=== PATIENT | male | born 1980 | race Caucasian/White ===

== ENCOUNTER 2020-12-03 15:11 | Emergency (ER) | payer OTHER, SELFPAY ==
--- NOTE | ~2020-12-03 | XR_ITS ---
EXAMINATION: XR wrist RT min 3V DATE: 12/03/2020 15:27 INDICATION: Right wrist pain post fall TECHNIQUE: Posteroanterior, ulnar deviation, oblique, and lateral views of the right wrist were obtai devante. COMPARISON: none FINDINGS: Bone alignment is normal. No fracture. Joint spaces are normal. Soft tissues are unremarkable. IMPRESSION: 1. No acute osseous abnormality. Reviewed, dictated and finalized at location A.
--- NOTE | 2020-12-03 15:17 | ED.GENADULT ---
HPI - General Adult General Chief complaint: Extremity Injury, Upper Stated complaint: INJURED R WRIST Time Seen by Provider: 12/03/20 15:17 Source: patient Mode of arrival: ambulatory Limitations: no limitations History of Present Illness HPI narrative: 40-year-old male patient presents to the [facility] with complaints of right wrist pain. Patient states he was at work yesterday and states he was trying to fix the clients bumper and states he was using a metal pole pulling on the bumper and states that it slipped and he fell back using his right hand to brace his fall. Patient states since then he has been having some right wrist pain. Patient states he has taken some Motrin for the pain. Denies any numbness or tingling to the fingers at this time. Related Data Home Medications Medication Instructions Recorded Confirmed No Home Medications 12/03/20 12/03/20 Allergies Allergy/AdvReac Type Severity Reaction Status Date / Time No Known Allergies Allergy Unverified 12/03/20 09:48 Review of Systems Review of Systems: Narrative: CONSTITUTIONAL: Denies fever, chills, or sweats. EYES: Denies visual changes, redness, or discharge. ENT: Denies rhinorrhea, congestion, sore throat, or otalgia. CARDIOVASCULAR: Denies chest pain, palpitations, or edema. RESPIRATORY: Denies cough or dyspnea. GASTROINTESTINAL: Denies abdominal pain, nausea, vomiting, or diarrhea. GENITOURINARY: Denies dysuria or hematuria. SKIN: Denies rash or itching. MUSCULOSKELETAL: Denies back pain, joint pain, or myalgia. Right wrist pain NEUROLOGIC: Denies headache, numbness, or weakness. PSYCHIATRIC: Denies anxiety or depression. [facility] Past Medical History Medical History Idiopathic gout Left hip pain Lower back pain Wrist swelling Family History Family History Father Osteoarthritis Mother Brain tumor Family history of colon cancer Grandparent Carcinoma of colon Social History Social History Smoking status: Current every day smoker Alcohol intake: current Comments At the time of my signature I agree with nursing past medical history, surgical, social, and family history. There is no relevant family history pertinent to the presenting complaint. Exam Narrative: Exam Narrative: GENERAL: Well-appearing, well-nourished, and in no acute distress. HEAD: Normocephalic, atraumatic. EYES: PERRLA and EOMI. ENT: Nares clear, no rhinorrhea or epistaxis. Mucous membranes moist. NECK: Supple. No lymphadenopathy CHEST: Clear to auscultation. No respiratory distress. HEART: Regular rate and rhythm. No murmur heard. Normal peripheral pulses. ABDOMEN: Soft, nontender, nondistended, normal active bowel sounds. EXTREMITIES: The R wrist is without obvious asymmetry or deformity when compared to the L wrist. No surface trauma, open wounds, swelling, or obvious deformity. No overlying erythema or warmth. No bony crepitus or focal area of TTP. No scaphoid fullness or tenderness to direct palpation or axial load. Pain with flex/extension, no pain with ulnar/radial deviation. Motor/sensory function of ulnar, radial, median nerves intact. Ulnar and radial pulses intact. Negaitve Phalen's/Tinel's sign. Negative Nina test. SKIN: Warm, dry, no rash. NEURO: No focal deficits. Alert and oriented x3. Course Reevaluation(s) Reevaluation #1: Reevaluated patient after his x-ray resulted. Notified patient that his x-ray is negative for any acute fractures. Discussed with him that his pain is most likely due to a sprain or overextension of the ligaments in his wrist. Discussed with patient that we will go ahead and wrap him with an Torres wrap today and he may take Tylenol ibuprofen as needed for the pain and encourage ice and rest. Discussed with patient that if he would need any type of res
[2020-12-03 15:18] VITALS: BP 152/101; PULSE 108; RESP 16; TEMP 37; O2SAT 100
[2020-12-03 15:21] VITALS: BP 152/101; PULSE 108; RESP 16; O2SAT 100
== END 2020-12-03 15:52 | disposition home or self-care (01) ==
PROVIDERS: Emergency Provider Nurse Practitioner Family; PCP Internal Medicine
DX: S63.501A Unspecified sprain of right wrist, initial encounter (principal); W19.XXXA Unspecified fall, initial encounter; Y99.0 Civilian activity done for income or pay; M10.00 Idiopathic gout, unspecified site; F17.200 Nicotine dependence, unspecified, uncomplicated
CPT/HCPCS: 73110; 99213; G0463

== ENCOUNTER 2022-07-19 10:35 | Outpatient (CLI) | payer OTHER, BC, SELFPAY ==
[2022-07-19 18:56] LABS: Basophils Percent Auto 0.6 % (0.2-1.2); Eosinophils Absolute Auto 0.2 K/mm3 (0-0.3); Eosinophils Percent Auto 2.9 % (0-4.4); Hematocrit 47.5 % (42.0-52.0); Hemoglobin 15.2 g/dL (14.0-18.0); Immature Granulocyte Absolute 0.02 K/mm3 (0.00-0.031); Immature Granulocyte Percent A 0.4 % (0-0.5); Lymphocytes Absolute Auto 0.79 K/mm3 (0.9-3.2); Lymphocytes Percent Auto 15.2 % (18.3-44.2); Mean Corpuscular Hemoglobin 31.9 pg (26-34); Mean Corpuscular Volume 99.8 fl (80-100); Mean Platelet Volume 10.4 fl (7.4-10.4); Monocytes Absolute Auto 0.5 K/mm3 (0.1-0.6); Monocytes Percent Auto 8.7 % (2.6-8.5); Neutrophils Absolute Auto 3.8 K/mm3 (1.3-6.7); Neutrophils Percent Auto 72.2 % (45.5-73.1); Platelet Count Result 213 k/mm3 (150-375); Red Blood Count 4.76 M/mm3 (4.6-6.20); Red Cell Distribution Width 12.7 % (11.5-14.5); White Blood Count 5.2 K/mm3 (4.5-10.0)
[2022-07-19 19:48] LABS: Alanine Aminotransferase 25 U/L (6-50); Albumin Level 4.5 g/dL (3.5-5.1); Alkaline Phosphatase 84 U/L (38-126); Anion Gap 9 mmol/L (8-16); Aspartate Amino Transferase 27 U/L (17-59); Bilirubin,Total 0.5 mg/dL (0.2-1.3); Blood Urea Nitrogen 8 mg/dL (9-20); Calcium 9.1 mg/dL (8.4-10.2); Carbon Dioxide 27 mmol/L (22-30); Chloride 102 mmol/L (98-107); Cholesterol 224 mg/dL (0-200); Estimated Glomerular Filt Rate > 60; Glucose 89 mg/dL (65-110); HDL Direct 46 mg/dL; Potassium 4.5 mmol/L (3.4-5.0); Sodium 138 mmol/L (137-145); Triglycerides 203 mg/dL (<150)
[2022-07-19 21:03] LABS: LDL Cholesterol Direct 134 mg/dL
== END 2022-07-19 10:36 | disposition home or self-care (01) ==
LOC: ANHGOSHLAB 10:40
PROVIDERS: PCP Internal Medicine; Visit Provider Clinical Nurse Specialist
DX: Z13.29 Encounter for screening for other suspected endocrine disorder (principal); M10.00 Idiopathic gout, unspecified site; Z13.220 Encounter for screening for lipoid disorders
CPT/HCPCS: 36415; 80053; 80061; 84550; 85025

== ENCOUNTER 2023-11-15 15:34 | Outpatient (CLI) | payer BC, SELFPAY ==
[2023-11-15 18:55] LABS: Alanine Aminotransferase 22 U/L (6-50); Albumin Level 4.5 g/dL (3.5-5.1); Alkaline Phosphatase 75 U/L (38-126); Anion Gap 6 mmol/L (8-16); Aspartate Amino Transferase 39 U/L (17-59); Bilirubin,Total 0.7 mg/dL (0.2-1.3); Blood Urea Nitrogen 8 mg/dL (9-20); Calcium 9.4 mg/dL (8.4-10.2); Carbon Dioxide 31 mmol/L (22-30); Chloride 102 mmol/L (98-107); Cholesterol 223 mg/dL (0-200); Estimated Glomerular Filt Rate > 60; Glucose 102 mg/dL (65-110); HDL Direct 58 mg/dL; Potassium 3.9 mmol/L (3.4-5.0); Sodium 139 mmol/L (137-145); Triglycerides 176 mg/dL (<150)
[2023-11-15 19:07] LABS: LDL Cholesterol Direct 135 mg/dL
[2023-11-15 20:01] LABS: Folic Acid 12.5 ng/mL (2.76->20)
[2023-11-15 20:07] LABS: Basophils Percent Auto 0.4 % (0.2-1.2); Eosinophils Absolute Auto 0.2 K/mm3 (0-0.3); Eosinophils Percent Auto 4.3 % (0-4.4); Hematocrit 47.7 % (42.0-52.0); Hemoglobin 15.6 g/dL (14.0-18.0); Lymphocytes Percent Auto 20.4 % (18.3-44.2); Mean Corpuscular HGB Conc 32.7 g/dl (32-36); Mean Corpuscular Hemoglobin 31.6 pg (26-34); Mean Corpuscular Volume 96.6 fl (80-100); Mean Platelet Volume 10.6 fl (7.4-10.4); Monocytes Absolute Auto 0.5 K/mm3 (0.1-0.6); Monocytes Percent Auto 9.6 % (2.6-8.5); Neutrophils Absolute Auto 3.2 K/mm3 (1.3-6.7); Neutrophils Percent Auto 65.3 % (45.5-73.1); Platelet Count Result 206 k/mm3 (150-375); Red Blood Count 4.94 M/mm3 (4.6-6.20); Red Cell Distribution Width 12.5 % (11.5-14.5); White Blood Count 4.9 K/mm3 (4.5-10.0)
[2023-11-15 20:25] LABS: Creatinine Urine 38.4 mg/dL
[2023-11-15 21:33] LABS: MALB Creatinine Ratio < 15.6 mg/g (0-30); Microalbumin Urine Random < 6.0 mg/L (0-16.7)
== END 2023-11-15 15:35 | disposition home or self-care (01) ==
LOC: ANHGOSHLAB 15:36
PROVIDERS: PCP Internal Medicine; Visit Provider Clinical Nurse Specialist
DX: F41.9 Anxiety disorder, unspecified (principal); Z13.220 Encounter for screening for lipoid disorders; Z78.9 Other specified health status; Z13.228 Encounter for screening for other metabolic disorders
CPT/HCPCS: 36415; 80053; 80061; 82043; 82607; 82746; 84443; 85025

== ENCOUNTER 2024-04-02 01:51 | Day surgery (SDC) | payer BC, SELFPAY ==
[2024-03-16 15:39] VITALS: BMI 24.5
[2024-04-02 10:12] VITALS: BP 146/102; PULSE 92; RESP 20; TEMP 36.3; O2SAT 100; BMI 22.6
[2024-04-02] MEDS: LACTATED RINGERS 1,000 ML 150 ML IV CONT (10:18)
--- NOTE | 2024-04-02 10:24 | SUR.PREOP ---
Patient reports eating cheeseburger yesterday at 1030. Clear liquids yesterday and stool is yellow now. Dr. Tirado notified.
--- NOTE | 2024-04-02 10:46 | WPDANESEPPF ---
Anes - Initial Pre Proc Eval Procedure: Operation Date: 04/02/24 11:30 Proposed Procedures p Colonoscopy - Andrea Benavides MD Date/Time: 04/02/24 10:46 Surgeon: Andrea Benavides MD Pre Op Diagnosis: Family history malignant neoplasm of digestive or Patient Data Age: 44 Gender: M Height: 1.8 m Weight: 73.6 kg Last Vital Signs Temp 97.4 F L 04/02/24 10:12 Pulse 92 04/02/24 10:12 Resp 20 04/02/24 10:12 BP 146/102 H 04/02/24 10:12 Pulse Ox 100 04/02/24 10:12 O2 Del Method Room Air 04/02/24 10:12 Allergies Allergy/AdvReac Type Severity Reaction Status Date / Time RUBBER Allergy Mild Itching Uncoded 04/02/24 10:11 Home Medications Medication Instructions Recorded Confirmed Type allopurinol 100 mg tablet 100 mg PO DAILY #90 tabs 10/26/23 04/02/24 Rx Patient hx anesthesia problems: none Family hx anesthesia problems: none Results Review: All pre-operative results and documents have been reviewed as part of the pre-operative evaluation. [facility] Past Medical History Medical History (Updated 11/15/23 @ 15:36 by NEIL Day) Impacted cerumen of right ear Left hip pain Lower back pain Screening for endocrine disorder Screening for lipoid disorders Wrist swelling Family History Family History Father Osteoarthritis Mother Brain tumor Family history of colon cancer Grandparent Carcinoma of colon Social History Social History Social History: Caffeine-yes Smoking packs per day: 0.5 Smoking cigarettes per day: 10.0 Years smoked: 20 Smoking pack-years: 10.00 Smoking status: Former smoker Tobacco type: cigarettes Alcohol intake: current Drinks per week: 24 Lack of Food: Never True Current Housing: I Have Housing Concerned About Future Housing: No Difficulty Paying Gas/Electric Bills: No Difficulty Paying for Meds: No Currently Unemployed: No Education: High School Diploma/GED Difficulty w/ Childcare or Family Care: No Living arrangements: with family Spiritual care concerns: No Anes - Eval Final PreProcedure Day of Procedure 04/02/24 10:46 Patient weight: normal Heart: regular rate and rhythm Lungs: clear to auscultation Airway: Mallampati scale Neurological: alert and oriented Last oral intake: >/= 8 hours ASA classification: II Emergent: no Anesthetic plan: proceed Anesthesia type and monitoring: general GIVS and standard monitoring Results Review: All pre-operative results and documents have been reviewed as part of the pre-operative evaluation. Informed Consent: The patient's anesthetic plan and its attendant risks and benefits were discussed with the patient/family/POA. Questions were solicited and answers provided to the satisfaction of the patient/family/POA.
--- NOTE | 2024-04-02 11:26 | PM.HPGS ---
History of Present Illness History of Present Illness Consent: Risks, benefits, and alternatives have been discussed and questions answered. Patient agrees to proceed with procedure. Chief complaint: Family history malignant neoplasm of digestive or Narrative: Jus Hodge is a 44 year old male here for first colonoscopy, had paternal family members with colon cancer. Review of Systems Review of Systems: All systems reviewed & are unremarkable except as noted in HPI and below PMFSH Past Medical History Medical History (Updated 11/15/23 @ 15:36 by NEIL Day) Impacted cerumen of right ear Left hip pain Lower back pain Screening for endocrine disorder Screening for lipoid disorders Wrist swelling Family History Family History Father Osteoarthritis Mother Brain tumor Family history of colon cancer Grandparent Carcinoma of colon Social History Social History Social History: Caffeine-yes Smoking packs per day: 0.5 Smoking cigarettes per day: 10.0 Years smoked: 20 Smoking pack-years: 10.00 Smoking status: Former smoker Tobacco type: cigarettes Alcohol intake: current Drinks per week: 24 Lack of Food: Never True Current Housing: I Have Housing Concerned About Future Housing: No Difficulty Paying Gas/Electric Bills: No Difficulty Paying for Meds: No Currently Unemployed: No Education: High School Diploma/GED Difficulty w/ Childcare or Family Care: No Living arrangements: with family Spiritual care concerns: No Meds Home Medications and Allergies Home Medications Medication Instructions Recorded Confirmed Type allopurinol 100 mg tablet 100 mg PO DAILY #90 tabs 10/26/23 04/02/24 Rx Allergies Allergy/AdvReac Type Severity Reaction Status Date / Time RUBBER Allergy Mild Itching Uncoded 04/02/24 10:11 Vital Signs Vital Signs - 24 hr 04/02/24 10:12 Temperature 97.4 F L Pulse Rate 92 Respiratory Rate 20 Blood Pressure 146/102 H Pulse Oximetry 100 Oxygen Delivery Room Air Exam Const: General: comfortable and no acute distress HENMT: Face/Nose/Sinus: Normal nares present Eyes: General: appearance normal, both eyes and all related structures Neck: Neck: no JVD Resp: Auscultation: clear to auscultation bilaterally Cardio: Rate: regular rate Rhythm: regular rhythm GI: Inspection: non-distended GI Palp: Yes Soft to palpation Skin: General skin exam: normal color Neuro: General: gait normal Speech: normal speech Extrem: General: normal to inspection Psych: Mental Status: mental status grossly normal Assessment and Plan Assessment and plan (1) Family history of colon cancer: Code(s): Z80.0 - Family history of malignant neoplasm of digestive organs Status: Acute Assessment and Plan: colonoscopy
[2024-04-02 11:55] VITALS: BP 105/73; PULSE 80; RESP 16; O2SAT 99
[2024-04-02 12:05] VITALS: BP 108/75; PULSE 74; RESP 22; O2SAT 99
[2024-04-02 12:15] VITALS: BP 129/92; PULSE 71; RESP 21; O2SAT 100
== END 2024-04-02 12:30 | disposition home or self-care (01) ==
PROVIDERS: PCP Internal Medicine; Visit Provider Internal Medicine Gastroenterology
PROC: 0DJD8ZZ Inspection of Lower Intestinal Tract, Via Natural or Artificial Opening Endoscopic (ICD-10-PCS; CPT 45378; principal; 2024-04-02 11:30)
DX: Z12.11 Encounter for screening for malignant neoplasm of colon (principal); D12.3 Benign neoplasm of transverse colon; D12.4 Benign neoplasm of descending colon; K63.5 Polyp of colon; K64.8 Other hemorrhoids; Z87.891 Personal history of nicotine dependence; Z80.0 Family history of malignant neoplasm of digestive organs
CPT/HCPCS: 45385; 88305; J2704; J7120

== ENCOUNTER 2025-01-26 19:59 | Emergency (ER) | payer BC, SELFPAY ==
--- NOTE | ~2025-01-26 | XR_ITS ---
XR tibia fibula RT 2V Ordering provider: Diana Shay MD History: . RLE injury, tripped over dog . Comparison: None. FINDINGS: BONES: Oblique fracture in the distal one third of the right tibia. JOINT SPACES: Normal. SOFT TISSUES: Normal. Calcaneal spur. IMPRESSION: Oblique fracture in the distal one third of the right tibia. Reviewed, dictated and finalized at location A.
[2025-01-26 19:58] VITALS: BP 145/109; PULSE 80; RESP 18; TEMP 36.9; O2SAT 100
--- NOTE | 2025-01-26 20:01 | ED_ITS ---
HPI - Extremity Injury (Lower) General Chief Complaint: Extremity Injury, Lower Stated Complaint: r leg deformity, fall Time Seen by Provider: 01/26/25 19:59 History of Present Illness HPI Narrative: Patient tripped over the family dog and fell, hurting his right leg; unable to put weight on it and having severe pain. Related Data Allergies Allergy/AdvReac Type Severity Reaction Status Date / Time RUBBER Allergy Mild Itching Uncoded 01/26/25 20:06 Review of Systems 2 Review of Systems: All systems reviewed & are unremarkable except as noted in HPI and below PMFSH Past Medical History Medical History (Updated 01/26/25 @ 22:33 by Diana Shay MD) Impacted cerumen of right ear Screening for lipoid disorders Screening for endocrine disorder Wrist swelling Left hip pain Lower back pain Family History Family History Father Osteoarthritis Mother Brain tumor Family history of colon cancer Grandparent Carcinoma of colon Social History Social History Social History: Caffeine-yes Smoking packs per day: 0.5 Smoking cigarettes per day: 10.0 Years smoked: 20 Smoking pack-years: 10.00 Smoking status: Former smoker Tobacco type: cigarettes Alcohol intake: current Drinks per week: 24 Lack of Food: Never True Current Housing: I Have Housing Concerned About Future Housing: No Difficulty Paying Gas/Electric Bills: No Difficulty Paying for Meds: No Currently Unemployed: No Education: High School Diploma/GED Difficulty w/ Childcare or Family Care: No Living arrangements: with family Spiritual care concerns: No Exam 2 Narrative: EXAMINATION OF ORGAN SYSTEMS/BODY AREAS: Constitutional: Vital signs per nursing GENERAL: Appears slightly intoxicated HEAD: Normal with no signs of head trauma. EYES: EOMI, conjunctiva normal ENT: Hearing grossly intact LUNGS: Nonlabored breathing. HEART: [Regular rate and rhythm] ABD: [Soft], [nontender to palpation] EXT: Obvious deformity to right lower leg SKIN: [No rashes or lesions.] NEURO: [Alert and oriented x 3. No gross focal sensory or strength deficits.] PSYCH: Normal affect Course Vital Signs Vital signs: Vital Signs Temperature 98.4 F 01/26/25 19:58 Pulse Rate 80 01/26/25 19:58 Respiratory Rate 18 01/26/25 19:58 Blood Pressure 145/109 H 01/26/25 19:58 Pulse Oximetry 100 01/26/25 19:58 Oxygen Delivery Room Air 01/26/25 19:58 Temperature 98.4 F 01/26/25 19:58 Pulse Rate 80 01/26/25 19:58 Respiratory Rate 18 01/26/25 19:58 Blood Pressure 145/109 H 01/26/25 19:58 Pulse Oximetry 100 01/26/25 19:58 Oxygen Delivery Room Air 01/26/25 19:58 MDM - Extremity Injury (Lower) MDM Narrative Medical decision making narrative: 45M was trying to keep the dog away from his 5yo child and tripped, hurting his right leg. On exam he is NVI with good DP pulses, but obvious deformity to leg. XR on my independent interpretations show prox fib fx, distal tibia fx. D/w ortho here Dr Sahu who recommends long leg splint and transfer to trauma center. D/w [facility] ortho per patient request, Dr Feliciano reviewed scans, will see patient in ER on transfer. Discussed with Dr. Man [facility] at [facility] who accepts patient, requested C-collar placed which will be done. Lab Data 01/26/25 20:52 01/26/25 20:52 Labs: Lab Results 01/26/25 Range/Units 20:52 WBC 7.7 (4.5-10.0) K/mm3 RBC 4.63 (4.6-6.20) M/mm3 Hgb 14.8 (14.0-18.0) g/dL Hct 45.8 (42.0-52.0) % MCV 98.9 (80-100) fl MCH 32.0 (26-34) pg MCHC 32.3 (32-36) g/dl RDW 12.6 (11.5-14.5) % Plt Count 179 (150-375) k/mm3 MPV 9.7 (7.4-10.4) fl Immature Gran % (Auto) 0.3 (0-0.5) % Neut % (Auto) 75.0 H (45.5-73.1) % Lymph % (Auto) 15.2 L (18.3-44.2) % [place] % (Auto) 7.5 (2.6-8.5) % Eos % (Auto) 1.6 (0-4.4) % Baso % (Auto) 0.4 (0.2-1.2) % Lymph # (Auto) 1.16 (0.9-3.2) K/mm3 [place] # (Auto) 0.6 (0.1-0.6) K/mm3 Eos # (Auto) 0.1 (0-0.3) K/mm3 Baso # (Auto) 0.0 (0.0-0.1) K/mm3 Abs Immat Gran (auto) 0.02 (0.00-0.031) K/mm3 Absolute Neuts (auto) 5.8 (1.3-6.7) K/mm3 Absolute Nucleated RBC 0.000 (0.0-0.012) K/mm3 Nucleated RBC % 0.0 (0.0-0.2) % Sodium 134 L (137-145) mmol/L Potassium 3.6 (3.4-5.0) mmol/L Chloride 97 L (98-107) mmol/L Carbon Dioxide 26 (22-30) mmol/L Anion Gap 11 (4-12) mmol/L BUN 4 L (9-20) mg/dL Creatinine 0.76 (0.7-1.3) mg/dL Estim Creat Clear Calc 111 ml/min Estimated GFR > 60 (59 - ) Glucose 86 (65-110) mg/dL Calcium 8.4 (8.4-10.2) mg/dL Ethyl Alcohol 155 (<10) mg/dL Discharge Plan Discharge Clinical Impression: Closed tibia fracture, Closed fibular fracture, Alcohol intoxication Patient Disposition: Acute Care Hospital Condition: Stable Patient Language: Turkish Prescriptions: No Action allopurinol 100 mg tablet 100 mg PO DAILY Qty: 90 1RF Follow-up/Referrals: Yoan Siddiqi DO [Primary Care Provider] -
--- OUTSIDE RECORDS SUMMARY | 2025-01-26 20:22 | XMS_ITS | Continuity of Care Document ---
Author Organization [facility] Address [address] [place] [address] utive [facility] [address] [place] [address] Phone Care Team Providers Care Humid System Operator Name Role Phone Cristian Sahu Unavailable Unavailable Procedures Procedure Date Office/outpatient Visit, Est Remove Foreign Body From Eye Office/outpatient Visit, Est Remove Foreign Body From Eye Advance Directives Directive Yes / No Effective Date File Name No Information Encounters Encounter Description Practice Location Reason(s) For Visit Diagnoses Date Provider Providers Copied on Encounter Office/outpat ient Visit, [facility] [place], [address] [place] [address] [address], [place], [place], [id number], tel:[phone] [facility] No Information 9-200 9 Luis Alberto Foster. [address] [place] [address], [place], [place], [facility], [place]. tel:[phone] [facility], [address] [place] [address] [address], [place], [place], [id number], [place] tel:[phone] [facility] [place] No Information 2200 9 Antonio [facility]. [facility] [place] [address] [facility] [address], [place], [place], [facility], [place]. tel:[phone] Referring Provider: [facility] [address], [place], [place], [facility]. tel:[phone] Office/outpat ient Visit, [facility] [place], [id number] [place] [address] [address], [place], [place], [id number], tel:[phone] [facility] No Information Apr-0 9-200 8 Nunn OD Cesar. [address] [place] [address] , [address], [place], [address], . tel:[phone] [facility], [address], [place], [place], [id number], tel:[phone] [facility] No Information Apr-0 2-200 8 Nunn OD Cesar. [address] [place] [address] , [address], [place], [address], . tel:[phone] Referring Provider: Cesar Cagle, [address] [place] [address] [address], [place], [place], [facility]. tel:[phone] Family History Family Member Type Diagnosis Age At Onset No Information Payers Payer name Insurance type Covered constitution party ID Jairo malone(s) [facility] CI [id number] Social History Type Description Quantity Date Captured Comments Sex Male Smoking Status No Information Chief Complaint And Reason For Visit No Information Reason For Referral Reason For Referral No Information History Of Present Illness Encounter Date Complaint History Of Prese nt Illness No Information Functional Status Date Functional Assessmen t No Information Instructions Date Instruction Additional Infor mation No Information Assessments Type Assessment Date No Information Patient Care Teams Name Effective Dates (start - stop) Status Members No Information
[2025-01-26 20:59] LABS: Basophils Percent Auto 0.4 % (0.2-1.2); Eosinophils Absolute Auto 0.1 K/mm3 (0-0.3); Eosinophils Percent Auto 1.6 % (0-4.4); Hematocrit 45.8 % (42.0-52.0); Hemoglobin 14.8 g/dL (14.0-18.0); Immature Granulocyte Absolute 0.02 K/mm3 (0.00-0.031); Immature Granulocyte Percent A 0.3 % (0-0.5); Lymphocytes Absolute Auto 1.16 K/mm3 (0.9-3.2); Lymphocytes Percent Auto 15.2 % (18.3-44.2); Mean Corpuscular HGB Conc 32.3 g/dl (32-36); Mean Corpuscular Volume 98.9 fl (80-100); Mean Platelet Volume 9.7 fl (7.4-10.4); Monocytes Absolute Auto 0.6 K/mm3 (0.1-0.6); Monocytes Percent Auto 7.5 % (2.6-8.5); Neutrophils Absolute Auto 5.8 K/mm3 (1.3-6.7); Platelet Count Result 179 k/mm3 (150-375); Red Blood Count 4.63 M/mm3 (4.6-6.20); Red Cell Distribution Width 12.6 % (11.5-14.5); White Blood Count 7.7 K/mm3 (4.5-10.0)
[2025-01-26 21:10] LABS: Anion Gap 11 mmol/L (4-12); Blood Urea Nitrogen 4 mg/dL (9-20); Calcium 8.4 mg/dL (8.4-10.2); Carbon Dioxide 26 mmol/L (22-30); Chloride 97 mmol/L (98-107); Estimated CRCL calculation 111 ml/min; Estimated Glomerular Filt Rate > 60; Ethanol 155 mg/dL (<10); Glucose 86 mg/dL (65-110); Potassium 3.6 mmol/L (3.4-5.0); Sodium 134 mmol/L (137-145)
[2025-01-26] MEDS: fentaNYL CITRATE INJ (*CRX) 100 MCG/2 ML VIAL 50 MCG IV PUSH (22:43)
--- NOTE | 2025-01-26 22:57 | PC.NURSE ---
2250 Report called to CLEO Patel at [facility]. Patient waiting for EMS to arrive to transport patient.
[2025-01-26 22:58] VITALS: BP 135/86; PULSE 96; RESP 16; O2SAT 98
--- NOTE | 2025-01-26 23:12 | PC.NURSE ---
EMS here to transport patient to [facility] ER.
== END 2025-01-26 23:15 | disposition short-term general hospital (02) ==
PROVIDERS: Emergency Provider Emergency Medicine; PCP Internal Medicine
DX: S82.391A Other fracture of lower end of right tibia, initial encounter for closed fracture (principal); S82.831A Other fracture of upper and lower end of right fibula, initial encounter for closed fracture; F10.129 Alcohol abuse with intoxication, unspecified; Y90.6 Blood alcohol level of 120-199 mg/100 ml; W01.0XXA Fall on same level from slipping, tripping and stumbling without subsequent striking against object, initial encounter
CPT/HCPCS: 29505; 36415; 73590; 80048; 82077; 85025; 96374; 99285; J3010; L0140